=== PATIENT | male | born 1965 | race Caucasian/White ===

== ENCOUNTER → 2023-06-24 15:29 | Outpatient (REF) | payer OTHER, SELFPAY | LOC: HWRAD 15:29 | PROVIDERS: ATTENDING PHYSICIAN Nurse Practitioner Family | DX: M79.672 Pain in left foot (principal) | CPT/HCPCS: 73630 ==

== ENCOUNTER → 2024-04-03 15:06 | Outpatient (REF) | payer OTHER, SELFPAY | LOC: REG 15:06 | PROVIDERS: ATTENDING PHYSICIAN Nurse Practitioner Family | DX: M25.562 Pain in left knee (principal) | CPT/HCPCS: 73564 ==

== ENCOUNTER → 2024-04-18 16:36 | Outpatient (REF) | payer OTHER, SELFPAY | LOC: PAVMRI 16:36 | PROVIDERS: FAMILY PHYSICIAN Nurse Practitioner Family | DX: M25.562 Pain in left knee (principal) | CPT/HCPCS: 73721 ==